=== PATIENT | male | born 1970 | race Caucasian/White ===

== ENCOUNTER 2023-06-14 22:15 | Emergency (ER) | payer OTHER, SELFPAY ==
[2023-06-14 22:19] VITALS: BP 115/64; PULSE 94; RESP 18; TEMP 36.7; O2SAT 96; BMI 32.0
--- NOTE | 2023-06-14 22:35 | RAD_ITS ---
EXAM: XR LEFT KNEE COMPLETE, 4 OR MORE VIEWS CLINICAL INDICATION: pain TECHNIQUE: Four or more views of the left knee. COMPARISON: No relevant prior studies available. FINDINGS: BONES/JOINTS: The patella is subluxed superiorly (patella david). No acute fracture. Preservation of the joint spaces. No sclerotic or destructive changes observed. SOFT TISSUES: Soft tissue fullness noted in the infrapatellar region, extending to the anterior tibial tuberosity. Minimal knee effusion is suspected. No radiopaque foreign body. RAD/Knee 4 or More Views IMPRESSION: Superior subluxation of the patella with soft tissue fullness within the infrapatellar region, suspicious for rupture of the infrapatellar tendon. No acute fracture identified. Electronically Signed: Rupert Zamora MD at 23:27 EDT ,
--- NOTE | 2023-06-14 23:08 | EDS_ITS ---
HPI History of Present Illness Chief Complaint: Lower Extremity Injury Narrative Narrative: 52-year-old male presenting with left knee pain. He states he was dancing in his knee just when out. He thought he dislocated his knee but he was unable to relocate it. He is laying on the bed but is not able to flex his lower extremity below the knee. He has a palpable mass above the knee. He states is not severely painful currently but he cannot move his leg. No numbness or tingling PFSH PFSH Medical History Asthma Hypercholesteremia Hypertension Home Medications oxycodone 5 mg tablet 5 mg PO Q6H PRN pain 3 days #12 tabs 06/14/23 [Rx Last Taken Unknown] Allergy/AdvReac Type Severity Reaction Status Date / Time No Known Allergies Allergy Verified 06/14/23 22:18 Social History Smoking Status: Never smoker ROS ROS ED Constitutional Constitutional ED: Denies chills, fever(s) or sweats Eyes Eyes: Denies blurry vision or change in vision ENT ENT ED: Denies ear pain or sore throat Cardiovascular Cardiovascular: Denies chest pain, palpitations or racing heartbeat Respiratory/Chest Respiratory/Chest: Denies cough, dyspnea or sputum Gastrointestinal Gastrointestinal: Denies abdominal pain, constipation, diarrhea, nausea or vomiting Genitourinary Genitourinary ED: Denies dysuria, hematuria or urinary frequency Musculoskeletal Musculoskeletal: Reports other Details: Left knee pain ; Denies arthralgias Integumentary Denies abscess, Abrasions or rash Neurologic Neurologic: Denies headache(s), paresthesias or weakness Psychiatric Psychiatric: Denies anxiety, depression, suicidal ideation or suicidal thoughts Endocrine Endocrinology: Denies polydipsia or polyuria EXAM Physical Exam Const Vital Signs: 06/14/23 22:19 Temperature 98.1 F Temperature Source Oral Pulse Rate 94 Respiratory Rate 18 Blood Pressure 115/64 Blood Pressure Mean 81 Pulse Ox 96 Oxygen Delivery Method Room Air Positive well nourished General Appearance ED: NAD HEENT Reports moist mucous membranes normocephalic and atraumatic Chest Wall inspection of chest normal Extremity Extremity Narrative: Deformity noted above the knee. This appears to be the palpable patella. I believe this is a patellar tendon rupture. Patient unable to extend the lower extremity below the knee. Neuro oriented x3 and CN's II-XII intact bilaterally Sensorium / Orientation: alert Motor Exam: strength 5/5 throughout Psych mental status grossly normal Skin no wounds MDM MDM MDM Narrative Medical decision making narrative: Presenting with left knee pain. It appears to have a patellar tendon rupture on exam. X-ray of the left knee on my interpretation shows a high riding patella. I do not see any evidence of fracture. Discussed with Dr. Slade who is on- call for Ortho. Patient does not live around here and is going to go home. He recommended putting the patient in a knee immobilizer and given him crutches and something for pain for home. This will be provided for the patient. Patient discharged home in stable condition. Impression: 1. Patellar tendon rupture Discharge Plan Triage Chief Complaint: Lower Extremity Injury ED Provider: Adan Melendez Dx/Rx/DC Orders Instructions: ED Patellar Dislocation/Subluxation Prescriptions: New oxycodone 5 mg tablet 5 mg PO Q6H PRN (Reason: pain) 3 Days Qty: 12 0RF Disposition Disposition: Home, Self Care
== END 2023-06-14 23:46 | disposition home or self-care (01) ==
LOC: ED 23:20
PROVIDERS: Emergency Provider Student in an Organized Health Care Education/Training Program; Referring Provider Student in an Organized Health Care Education/Training Program; Visit Provider Student in an Organized Health Care Education/Training Program
DX: S76.112A Strain of left quadriceps muscle, fascia and tendon, initial encounter (principal); X58.XXXA Exposure to other specified factors, initial encounter
CPT/HCPCS: 73564; 99285